=== PATIENT | male | born 1940 | race Caucasian/White ===

== ENCOUNTER 2018-06-22 16:07 | Emergency (ER) | payer MEDICARE ==
[~2018-06-22] VITALS: Ht 167.6 cm; Wt 49.9 kg
[2018-06-22 16:10] VITALS: BP_SYST 85
[2018-06-22] MEDS ORDERED: NS 1000 ML IV.SOLN IV ONE (16:15)
[2018-06-22] MEDS ORDERED: IPRATROPIUM/ALBUTEROL SULFATE 3 ML AMPUL.NEB (DUONEB) INH ONE (16:15)
[2018-06-22] MEDS ORDERED: DEXTROSE 50% JECT 50 ML DISP.SYRIN IVP ONE (16:45)
[2018-06-22] MEDS ORDERED: DEXTROSE 50% JECT 50 ML DISP.SYRIN ONE (16:49)
[2018-06-22] MEDS ORDERED: D5/0.45 NS 1,000 ML IV ONE (17:00)
[2018-06-22 17:11] LABS: ANION GAP 18 (5-15); CALCIUM 8.8 mg/dL (8.4-11.0); CHLORIDE 107 mmol/L (98-107); CREATININE 2.37 mg/dL (0.55-1.30); GLUCOSE 50 mg/dL (70-99); HEMATOCRIT 32.4 % (36-54); HEMOGLOBIN 10.3 g/dL (14.0-18.0); MEAN CORPUSCULAR HEMOGLOBIN 26 pg (27-31); MEAN CORPUSCULAR HGB CONC 32 % (32-36); MEAN CORPUSCULAR VOLUME 81 fL (79.0-98.0); PLATELET COUNT (AUTO) 556 K/uL (130-430); POTASSIUM 3.3 mmol/L (3.5-5.1); RED BLOOD CELL COUNT(AUTO) 3.99 MIL/uL (4.2-6.2); RED CELL DISTRIBUTION WIDTH 15.4 % (9.0-15.0); SODIUM SERUM 144 mmol/L (136-145); UREA NITROGEN, BLOOD 25 mg/dL (8-21); WHITE BLOOD COUNT (AUTO) 6.9 K/uL (4.8-10.8)
[2018-06-22 17:12] LABS: INR 1.3 (0.80-1.20)
[2018-06-22 17:15] LABS: ALANINE AMINOTRANSFERASE 7 U/L (12-78); ALBUMIN 2.2 g/dL (3.4-4.8); ASPARTATE AMINOTRANSFERASE 15 U/L (10-37); TOTAL BILIRUBIN 0.5 mg/dL (0.0-1.0)
[2018-06-22] MEDS ORDERED: cefTRIAXone 1 GM IVPB PREMIX 50 ML IV ONE (18:30)
[2018-06-22 18:56] LABS: BAND % (MANUAL) 1 % (0-6)
[2018-06-22 18:57] LABS: BASOPHILS % (MANUAL) 0 % (0-2); EOSINOPHILS % (MANUAL) 1 % (0-7); LYMPHOCYTES % (MANUAL) 24 % (20-46); MONOCYTES % (MANUAL) 16 % (0-11)
[2018-06-22] MEDS ORDERED: NACL 0.9% 1,000 ML IV ONE (19:30)
[2018-06-22 20:08] LABS: BILIRUBIN,URINE 2+ (NEGATIVE); BLOOD, URINE 1+ (NEGATIVE); CLARITY/URINE CLEAR (CLEAR); COLOR,URINE YELLOW (YELLOW); GLUCOSE,URINE TRACE (NEGATIVE); KETONES,URINE 2+ (NEGATIVE); LEUKOCYTE ESTERASE ,URINE NEGATIVE (NEGATIVE); NITRITE, URINE NEGATIVE (NEGATIVE); PROTEIN URINE TRACE (NEGATIVE); UROBILINOGEN,URINE 0.2 (0.2-1.0)
[2018-06-22 20:14] LABS: BACTERIA,URINE FEW /HPF (None Seen); RBC,URINE 0-3 /HPF (0-3)
[2018-06-22 23:10] VITALS: BP_SYST 117
== END 2018-06-22 23:10 | disposition short-term general hospital (02) ==
LOC: SED 16:07
DX: J18.9 Pneumonia, unspecified organism (principal); E78.5 Hyperlipidemia, unspecified; R41.82 Altered mental status, unspecified; R03.0 Elevated blood-pressure reading, without diagnosis of hypertension
CPT/HCPCS: 36415; 36600; 71045; 80053; 81000; 82550; 82803; 82962; 83605; 84484; 85007; 85027; 85610; 85730; 87040; 87086; 93005; 94640; 96361; 96365; 96375; 99291; J0696; J7030; J7620